=== PATIENT | male | born 1935 | race Two or more races ===

== ENCOUNTER 2018-06-06 14:28 | Inpatient (IN) | payer OTHER, MEDICAID ==
[~2018-06-06] VITALS: Ht 175.3 cm; Wt 72.9 kg
[2018-06-06 15:14] LABS: Eosinophils # (auto) 0 uL; Lymphocytes # (auto) 0.6 uL; Lymphocytes % (auto) 9.6 % (10.0-50.0); Monocytes # (auto) 0.1 uL
[2018-06-06 15:15] LABS: Basophils # (auto) 0.1 uL; Basophils % (auto) 0.9 % (0.0-2.0); Eosinophils % (auto) 0.3 % (0.0-7.0); Hematocrit 35.8 % (41.0-53.0); Hemoglobin 12.1 g/dL (13.5-17.5); Mean Corpuscular Hgb Conc. 33.8 g/dL (32.0-36.0); Mean Corpuscular Volume 109.5 fL (80.0-100.0); Monocytes % (auto) 0.8 % (0.0-12.0); Neutrophils # (auto) 5.3 uL; Neutrophils % (auto) 88.4 % (37.0-80.0); Platelet Count (auto) 104 10^3/uL (140-450); Red Blood Cells 3.27 10^6/uL (4.5-5.90); Red Cell Distribution Width 14.5 % (11.8-14.3)
[2018-06-06] MEDS ORDERED: methylPREDNISolone SOD SUCC 125 MG/2 ML VL IV ONE (15:30)
[2018-06-06 15:31] LABS: Albumin 2.5 g/dL (3.4-5.0); Calcium 7.6 mg/dL (8.5-10.1); Magnesium 1.9 mg/dL (1.6-2.6); Potassium 3.8 mmol/L (3.5-5.1)
[2018-06-06 15:36] LABS: BUN/Creatinine Ratio 13.8; Bilirubin, Total 1.8 mg/dL (0.2-1.0); Total Protein 6.7 g/dL (6.4-8.2)
[2018-06-06] MEDS ORDERED: SODIUM CHLORIDE 0.9% 1,000 ML IV SCH (15:57)
[2018-06-06] MEDS ORDERED: ACETAMINOPHEN 500 MG TAB PO PRN (16:00)
[2018-06-06] MEDS ORDERED: PROMETHAZINE HCL 25 MG/ML 1ML IV PRN (16:00)
[2018-06-06] MEDS ORDERED: OSELTAMIVIR 75 MG CAP PO ONE (16:00)
[2018-06-06] MEDS ORDERED: TEMAZEPAM 15 MG CAP PO PRN (16:00)
[2018-06-06] MEDS ORDERED: ALBUTEROL SULF 2.5 MG/0.5ML(0.5%) NEB SOLN NEB PRN (16:00)
[2018-06-06] MEDS ORDERED: NITROGLYCERIN 0.4 MG SL TAB SL PRN (16:00)
[2018-06-06] MEDS ORDERED: MORPHINE SULFATE 4 MG/ML SYR/VIAL IV PRN ×2 (16:00)
[2018-06-06] MEDS ORDERED: HYDROcodone-ACET 5/325MG TAB PO PRN (16:00)
[2018-06-06] MEDS ORDERED: ASPirin-EC 81 mg tab PO ONE (16:00)
[2018-06-06] MEDS ORDERED: LACTULOSE 20Gm/30ML SOLN PO PRN (16:00)
[2018-06-06] MEDS ORDERED: LORazepam 0.5 MG TAB PO PRN (16:00)
[2018-06-06 16:24] VITALS: BP 166/54
[2018-06-06 16:25] LABS: Lactic Acid w/Reflex 6.7 mmol/L (0.4-2.0)
[2018-06-06] MEDS: DOXYCYCLINE 100MG/250ML 250 ML IV SCH (17:26)
[2018-06-06 18:02] VITALS: BP 103/51
[2018-06-06] MEDS: IPRATROPIUM BROM 0.5 MG/2.5ML INH SOL NEB SCH (18:42)
[2018-06-06] MEDS: ALBUTEROL SULF 2.5 MG/0.5ML(0.5%) NEB SOLN NEB SCH (18:42)
[2018-06-06 22:00] VITALS: BP 112/59
[2018-06-06] MEDS ORDERED: OSELTAMIVIR 75 MG CAP PO SCH (22:00)
[2018-06-06] MEDS: CARVEDILOL 3.125 MG TAB PO SCH (22:04)
[2018-06-06] MEDS: ATORVASTATIN 20 MG TAB PO SCH (22:05)
[2018-06-06] MEDS: ENOXAPARIN SOD 80 MG/0.8ML SYRINGE SC SCH (22:05)
[2018-06-06 23:30] VITALS: BP 96/57
[2018-06-07] VITALS (9 sets, daily range): BP systolic 90–112; BP diastolic 51–63
[2018-06-07] MEDS: IPRATROPIUM BROM 0.5 MG/2.5ML INH SOL NEB SCH ×5 (00:05→22:39)
[2018-06-07] MEDS: ALBUTEROL SULF 2.5 MG/0.5ML(0.5%) NEB SOLN NEB SCH ×5 (00:05→22:39)
[2018-06-07] MEDS ORDERED: ASPI81TA27 PO (01:35)
[2018-06-07] MEDS: DOXYCYCLINE 100MG/250ML 250 ML IV SCH (04:12)
[2018-06-07 05:48] LABS: Albumin 2.1 g/dL (3.4-5.0); BUN/Creatinine Ratio 17.3; Calcium 7.5 mg/dL (8.5-10.1); Potassium 4.4 mmol/L (3.5-5.1)
[2018-06-07 05:51] LABS: Bilirubin, Total 1.3 mg/dL (0.2-1.0)
[2018-06-07 05:52] LABS: Lactic Acid w/Reflex 2.6 mmol/L (0.4-2.0)
[2018-06-07 06:36] LABS: Urine Bacteria MANY /hpf (None Seen); Urine Blood Negative /uL (Negative); Urine Hyaline Cast MANY /lpf (0 - 2); Urine Mucus FEW (None Seen); Urine Specific Gravity 1.021 (1.001-1.035); Urine Sperm PRESENT /hpf (None Seen); Urine WBC 252 /hpf (0 - 3)
[2018-06-07] MEDS: CARVEDILOL 3.125 MG TAB PO SCH ×2 (10:00→21:20)
[2018-06-07] MEDS: FUROSEMIDE 40 MG/4 ML VIAL IV SCH ×2 (10:00→10:28)
[2018-06-07] MEDS ORDERED: ENOXAPARIN SOD 40 MG/0.4 ML SYRINGE SC SCH (10:00)
[2018-06-07] MEDS: NITROGLYCERIN 0.2MG/HR TOPICAL PATCH TD SCH (10:00)
[2018-06-07] MEDS: ENALAPRIL MALEATE 2.5 MG TAB PO SCH (10:00)
[2018-06-07] MEDS: POTASSIUM CHL 20 Meq TABLET PO SCH (10:00)
[2018-06-07] MEDS: ENOXAPARIN SOD 80 MG/0.8ML SYRINGE SC SCH ×2 (10:28→21:21)
[2018-06-07] MEDS: PANTOPRAZOLE 40 MG TAB PO SCH (10:28)
[2018-06-07] MEDS: ASPirin 81 mg TAB PO SCH (10:28)
[2018-06-07] MEDS ORDERED: cefTRIAXone 1GM/50ML D5W 50 ML IV ONE (12:15)
[2018-06-07] MEDS: ATORVASTATIN 20 MG TAB PO SCH ×2 (21:20)
[2018-06-08] MEDS: ALBUTEROL SULF 2.5 MG/0.5ML(0.5%) NEB SOLN NEB SCH ×5 (02:43→19:08)
[2018-06-08] MEDS: IPRATROPIUM BROM 0.5 MG/2.5ML INH SOL NEB SCH ×5 (02:43→19:08)
[2018-06-08 04:00] VITALS: BP 97/40
[2018-06-08 08:00] VITALS: BP 131/65
[2018-06-08] MEDS: cefTRIAXone 1GM/50ML D5W 50 ML IV SCH (08:52)
[2018-06-08] MEDS: ENALAPRIL MALEATE 2.5 MG TAB PO SCH (10:00)
[2018-06-08] MEDS: CARVEDILOL 3.125 MG TAB PO SCH ×2 (10:00→21:41)
[2018-06-08] MEDS: NITROGLYCERIN 0.2MG/HR TOPICAL PATCH TD SCH (10:00)
[2018-06-08] MEDS: ASPirin 81 mg TAB PO SCH (10:51)
[2018-06-08] MEDS: PANTOPRAZOLE 40 MG TAB PO SCH (10:51)
[2018-06-08] MEDS: FUROSEMIDE 40 MG/4 ML VIAL IV SCH (10:51)
[2018-06-08] MEDS: ENOXAPARIN SOD 80 MG/0.8ML SYRINGE SC SCH ×2 (10:51→21:43)
[2018-06-08] MEDS: POTASSIUM CHL 20 Meq TABLET PO SCH (10:51)
[2018-06-08 11:57] VITALS: BP 118/66
[2018-06-08 16:03] VITALS: BP 95/50
[2018-06-08 20:00] VITALS: BP 102/50
[2018-06-08] MEDS: ATORVASTATIN 20 MG TAB PO SCH ×2 (21:42→21:43)
[2018-06-09] VITALS (7 sets, daily range): BP systolic 101–116; BP diastolic 48–77
[2018-06-09] MEDS: ALBUTEROL SULF 2.5 MG/0.5ML(0.5%) NEB SOLN NEB SCH ×6 (02:22→22:11)
[2018-06-09] MEDS: IPRATROPIUM BROM 0.5 MG/2.5ML INH SOL NEB SCH ×6 (02:22→22:11)
[2018-06-09] MEDS: cefTRIAXone 1GM/50ML D5W 50 ML IV SCH (09:07)
[2018-06-09] MEDS: CARVEDILOL 3.125 MG TAB PO SCH ×2 (10:00→22:00)
[2018-06-09] MEDS: ENALAPRIL MALEATE 2.5 MG TAB PO SCH (10:00)
[2018-06-09] MEDS: NITROGLYCERIN 0.2MG/HR TOPICAL PATCH TD SCH (10:00)
[2018-06-09] MEDS: PANTOPRAZOLE 40 MG TAB PO SCH (10:26)
[2018-06-09] MEDS: POTASSIUM CHL 20 Meq TABLET PO SCH (10:26)
[2018-06-09] MEDS: ASPirin 81 mg TAB PO SCH (10:26)
[2018-06-09] MEDS: FUROSEMIDE 40 MG/4 ML VIAL IV SCH (10:26)
[2018-06-09] MEDS: ENOXAPARIN SOD 80 MG/0.8ML SYRINGE SC SCH ×2 (10:26→22:46)
[2018-06-09] MEDS: ATORVASTATIN 20 MG TAB PO SCH (22:44)
[2018-06-10] MEDS: IPRATROPIUM BROM 0.5 MG/2.5ML INH SOL NEB SCH ×5 (02:17→14:00)
[2018-06-10] MEDS: ALBUTEROL SULF 2.5 MG/0.5ML(0.5%) NEB SOLN NEB SCH ×5 (02:18→14:00)
[2018-06-10 05:11] VITALS: BP 109/74
[2018-06-10 09:00] VITALS: BP 108/55
[2018-06-10] MEDS: CARVEDILOL 3.125 MG TAB PO SCH (09:03)
[2018-06-10] MEDS: FUROSEMIDE 40 MG/4 ML VIAL IV SCH (09:03)
[2018-06-10] MEDS: cefTRIAXone 1GM/50ML D5W 50 ML IV SCH (09:03)
[2018-06-10] MEDS: POTASSIUM CHL 20 Meq TABLET PO SCH (09:03)
[2018-06-10] MEDS: PANTOPRAZOLE 40 MG TAB PO SCH (09:04)
[2018-06-10] MEDS: ASPirin 81 mg TAB PO SCH (09:04)
[2018-06-10] MEDS: NITROGLYCERIN 0.2MG/HR TOPICAL PATCH TD SCH (09:04)
[2018-06-10] MEDS: ENALAPRIL MALEATE 2.5 MG TAB PO SCH (09:05)
[2018-06-10] MEDS: ENOXAPARIN SOD 80 MG/0.8ML SYRINGE SC SCH (09:05)
[2018-06-10 13:03] VITALS: BP 108/55
[2018-06-10 13:24] VITALS: BP 98/54
== END 2018-06-10 15:09 | disposition home or self-care (01) | DRG 871 ==
LOC: EDBD 14:28 → ER 14:28 → TELE 16:04 → TELE-EAST 17:51 → DOU IN ICU 23:24 → TELE-WESTW 06-09 11:57
PROVIDERS: ADMIT Internal Medicine; ATTEND Family Medicine
DX: A41.9 Sepsis, unspecified organism (principal); I21.4 Non-ST elevation (NSTEMI) myocardial infarction; E43 Unspecified severe protein-calorie malnutrition; J96.20 Acute and chronic respiratory failure, unspecified whether with hypoxia or hypercapnia; I50.43 Acute on chronic combined systolic (congestive) and diastolic (congestive) heart failure; N39.0 Urinary tract infection, site not specified; J44.1 Chronic obstructive pulmonary disease with (acute) exacerbation; G93.40 Encephalopathy, unspecified; R73.9 Hyperglycemia, unspecified; I11.0 Hypertensive heart disease with heart failure; J20.9 Acute bronchitis, unspecified; D64.9 Anemia, unspecified; D69.6 Thrombocytopenia, unspecified; E78.00 Pure hypercholesterolemia, unspecified; F03.90 Unspecified dementia, unspecified severity, without behavioral disturbance, psychotic disturbance, mood disturbance, and anxiety; F17.200 Nicotine dependence, unspecified, uncomplicated; G20 Parkinson's disease; Z53.29 Procedure and treatment not carried out because of patient's decision for other reasons; I25.10 Atherosclerotic heart disease of native coronary artery without angina pectoris; I35.0 Nonrheumatic aortic (valve) stenosis; Z66 Do not resuscitate; I70.90 Unspecified atherosclerosis; Z79.899 Other long term (current) drug therapy; I25.2 Old myocardial infarction; Z68.23 Body mass index [BMI] 23.0-23.9, adult
CPT/HCPCS: 36415; 71045; 71046; 71275; 80053; 80061; 81001; 82550; 83605; 83735; 83880; 84443; 84484; 85025; 85379; 86141; 87040; 87081; 87086; 87088; 87186; 87804; 93005; 93971; 94640; 94761; 96374; G0378; J0696; J3490